=== PATIENT | female | born 1980 | race Hispanic/Latino ===

== ENCOUNTER → 2017-11-26 | Outpatient (CLI) | payer MEDICARE | END | disposition home or self-care (01) | LOC: OIH 14:36 | PROVIDERS: ATTEND Internal Medicine | DX: J18.1 Lobar pneumonia, unspecified organism (principal) | CPT/HCPCS: 71046 ==

== ENCOUNTER 2020-05-23 00:45 | Emergency (ER) | payer MEDICARE ==
[2020-05-23] MEDS ORDERED: KETOROLAC TROMETHAMINE 60 MG/2 ML VIAL ONE (01:19)
== END 2020-05-23 02:24 | disposition home or self-care (01) ==
LOC: EDH 00:45
DX: M76.51 Patellar tendinitis, right knee (principal); M25.561 Pain in right knee; I10 Essential (primary) hypertension; E11.9 Type 2 diabetes mellitus without complications; E78.00 Pure hypercholesterolemia, unspecified; Z90.49 Acquired absence of other specified parts of digestive tract; Z98.890 Other specified postprocedural states; Z72.0 Tobacco use
CPT/HCPCS: 73562; 96372; 99283; J1885

== ENCOUNTER → 2021-02-06 | Outpatient (CLI) | payer MEDICARE | END | disposition home or self-care (01) | LOC: OIH 10:11 | PROVIDERS: ATTEND Internal Medicine | DX: M25.551 Pain in right hip (principal); M24.851 Other specific joint derangements of right hip, not elsewhere classified | CPT/HCPCS: 73502 ==

== ENCOUNTER 2021-04-02 09:48 | Emergency (ER) | payer MEDICARE ==
[~2021-04-02] VITALS: Ht 167.6 cm; Wt 136.1 kg
[2021-04-02 09:49] VITALS: BP 158/88
[2021-04-02] MEDS ORDERED: SOLU-MEDROL 125MG VIAL IVP ONE (10:00)
[2021-04-02] MEDS ORDERED: FAMOTIDINE 20MG VIAL IV ONE (10:00)
[2021-04-02] MEDS ORDERED: DiphenhydrAMINE HCL 50 MG/ML VIAL IV ONE (10:00)
[2021-04-02] MEDS ORDERED: FAMO-136 PO (12:09)
[2021-04-02] MEDS ORDERED: CETI10CA5 PO (12:09)
[2021-04-02] MEDS ORDERED: CHOL400T PO (12:09)
[2021-04-02] MEDS ORDERED: PRED10TA3 PO (12:12)
== END 2021-04-02 12:34 | disposition home or self-care (01) ==
LOC: EDH 09:48
DX: L50.0 Allergic urticaria (principal); E66.9 Obesity, unspecified; Z79.52 Long term (current) use of systemic steroids; Z68.42 Body mass index [BMI] 45.0-49.9, adult
CPT/HCPCS: 96374; 96375; 99284; J1200; J2930; J3490

== ENCOUNTER 2023-01-20 12:14 | Emergency (ER) | payer MEDICARE ==
[~2023-01-20] VITALS: Ht 165.1 cm; Wt 138.3 kg
[~2023-01-20 12:14] MED LIST: CETI10CA5 PO; CHOL400T PO; FAMO-136 PO; PRED10TA3 PO
[2023-01-20 13:22] LABS: BASOPHILS % (AUTO) 0.8 % (0.0-5.0); EOSINOPHILS % (AUTO) 2.4 % (0.0-8.0); HEMATOCRIT 40.4 % (36-48); LYMPHOCYTES % (AUTO) 29.2 % (21.0-51.0); MEAN CORPUSCULAR HEMOGLOBIN 30.7 pg (27.0-33.0); MEAN CORPUSCULAR HGB CONC 33.7 g/dL (32.0-36.0); MEAN CORPUSCULAR VOLUME 91.2 fL (79-99); MONOCYTES % (AUTO) 6.1 % (3.0-13.0); NEUTROPHILS % (AUTO) 60.9 % (40.0-77.0); PLATELET COUNT (AUTO) 394 K/uL (130-400); RED BLOOD CELL COUNT(AUTO) 4.43 MIL/uL (4.00-5.50); RED CELL DISTRIBUTION WIDTH 12.4 % (11.0-15.5); WHITE BLOOD COUNT (AUTO) 10.6 K/uL (4.8-10.8)
[2023-01-20 13:45] LABS: ALBUMIN 3.1 g/dL (3.5-5.0); POTASSIUM 3.9 mmol/L (3.5-5.1); TOTAL PROTEIN, SERUM 7.4 g/dL (6.0-8.3)
[2023-01-20 13:49] LABS: HCG,QUALITATIVE URINE NEGATIVE (NEGATIVE)
[2023-01-20 14:02] LABS: APPEARANCE,URINE CLEAR (CLEAR); BILIRUBIN,URINE NEGATIVE (NEGATIVE); COLOR,URINE COLORLESS (YELLOW); GLUCOSE, URINE (UA) >=1000 mg/dL (NEGATIVE); KETONES,URINE NEGATIVE (NEGATIVE); LEUKOCYTE ESTERASE ,URINE NEGATIVE Leu/uL (NEGATIVE); NITRATE,URINE NEGATIVE (NEGATIVE); OCCULT BLOOD,URINE NEGATIVE (NEGATIVE); PROTEIN,URINE NEGATIVE (NEGATIVE); UROBILINOGEN,URINE 0.2 mg/dL (0.2-1.0)
[2023-01-20 14:15] LABS: SQUAMOUS EPITHELIAL CELL,UR RARE /HPF (0-2); YEAST,URINE BUDDING FEW /HPF (None Seen)
[2023-01-20] MEDS ORDERED: 0.9%NACL 1000ML 2,000 ML IV ONE (14:30)
[2023-01-20] MEDS ORDERED: IOHEXOL-350 75 ML VIAL IV ONE (15:00)
[2023-01-20 16:16] VITALS: BP 150/81
== END 2023-01-20 16:34 | disposition home or self-care (01) ==
LOC: EDH 12:14
DX: E11.65 Type 2 diabetes mellitus with hyperglycemia (principal); E86.0 Dehydration; R10.9 Unspecified abdominal pain; I10 Essential (primary) hypertension; Z79.899 Other long term (current) drug therapy; Z90.49 Acquired absence of other specified parts of digestive tract; Z98.890 Other specified postprocedural states
CPT/HCPCS: 99285; 74177; 96360; 96361; 80053; 85025; 82948; 83605; 81001; 81025; 36415; J7030; Q9967

== ENCOUNTER 2023-05-28 11:58 | Emergency (ER) | payer OTHER, MEDICARE ==
[~2023-05-28] VITALS: Ht 165.1 cm; Wt 146.5 kg
[2023-05-28] MEDS ORDERED: SULF1TAB42 PO (13:43)
[2023-05-28] MEDS ORDERED: CEPH500B PO (13:43)
[2023-05-28 14:09] VITALS: BP 139/79; PULSE 80; RESP 18; O2SAT 98
== END 2023-05-28 14:19 | disposition home or self-care (01) ==
LOC: EDH 11:58
DX: L02.211 Cutaneous abscess of abdominal wall (principal); I10 Essential (primary) hypertension; E78.00 Pure hypercholesterolemia, unspecified; E11.9 Type 2 diabetes mellitus without complications; Z90.49 Acquired absence of other specified parts of digestive tract
CPT/HCPCS: 10060